=== PATIENT | female | born 1980 | race Caucasian/White ===

== ENCOUNTER 2019-11-25 09:02 | Emergency (ER) | payer SELFPAY ==
[~2019-11-25] VITALS: Ht 162.6 cm; Wt 59.1 kg
[~2019-11-25 09:02] MED LIST: penicillin
[2019-11-25] MEDS ORDERED: ACETAMINOPHEN 500 MG TABLET PO ONE (09:15)
[2019-11-25] MEDS ORDERED: IBUPROFEN 600 MG TABLET PO ONE (09:15)
[2019-11-25] MEDS ORDERED: HYDROCODONE/ACETAMINOPHEN 5-325 MG TABLET PO ONE (09:45)
[2019-11-25 10:00] VITALS: BP 118/79
== END 2019-11-25 10:18 | disposition home or self-care (01) ==
LOC: EMS 09:04
DX: J20.8 Acute bronchitis due to other specified organisms (principal); M79.10 Myalgia, unspecified site

== ENCOUNTER 2021-06-09 04:19 | Emergency (ER) | payer OTHER ==
[~2021-06-09] VITALS: Ht 162.6 cm; Wt 63.6 kg
[2021-06-09 06:48] LABS: APPEARANCE,URINE CLEAR (CLEAR); BILIRUBIN,URINE NEGATIVE (NEGATIVE); GLUCOSE, URINE (UA) NEGATIVE (NEGATIVE); KETONES,URINE NEGATIVE (NEGATIVE); LEUKOCYTE ESTERASE ,URINE NEGATIVE (NEGATIVE); NITRATE,URINE NEGATIVE (NEGATIVE); OCCULT BLOOD,URINE NEGATIVE (NEGATIVE); PH,URINE 5.5 (5.0-8.0); PROTEIN,URINE NEGATIVE (NEGATIVE); UROBILINOGEN,URINE 0.2 mg/dL (<=1.0)
[2021-06-09] MEDS ORDERED: IBUPROFEN 600 MG TABLET PO ONE (07:15)
[2021-06-09 08:00] VITALS: BP 125/73
== END 2021-06-09 08:04 | disposition left against medical advice (07) ==
LOC: EMS 04:24
DX: R10.2 Pelvic and perineal pain (principal)
CPT/HCPCS: 81003; 87491; 87591; 99284